=== PATIENT | male | born 1960 ===

== ENCOUNTER → 2023-04-12 06:00 | Outpatient (CLI) | payer OTHER ==
[~2023-04-12] VITALS: Ht 172.7 cm; Wt 71.7 kg
[~2023-04-12 06:00] MED LIST: AMBIEN10 MG PO; FOLIC ACID0.8 M1 PO; METFORMIN HCL500 M3 PO; ROSUVASTATIN CA20 MG PO; VASOTEC2.5 MG PO
== END | disposition home or self-care (01) ==
LOC: ADM 04-11 09:45 → U 06:00 → LAB 06:00 → CIR.AMB 04-14 09:45 → EDSTATUS 04-14 09:45 → CIR.AMB 04-14 12:00
PROVIDERS: ATTEND Surgery
DX: Z20.822 Contact with and (suspected) exposure to COVID-19 (principal)